=== PATIENT | female | born 1970 | race Caucasian/White ===

== ENCOUNTER 2017-09-12 19:59 | Emergency (ER) | payer OTHER ==
[~2017-09-12] VITALS: Ht 162.6 cm; Wt 85.5 kg
[2017-09-12 20:15] VITALS: BP 137/88
[2017-09-12] MEDS ORDERED: BACTRIM,SEPT1 TABLET PO (21:06)
[2017-09-12] MEDS ORDERED: PERCOCET 5/31 TABLET PO (21:06)
== END 2017-09-12 21:24 | disposition home or self-care (01) ==
LOC: EME 19:59
PROC: 0H9HXZZ Drainage of Right Upper Leg Skin, External Approach (ICD-10-PCS; principal; 2017-09-12)
DX: L02.415 Cutaneous abscess of right lower limb (principal); F17.200 Nicotine dependence, unspecified, uncomplicated; Z90.49 Acquired absence of other specified parts of digestive tract; Z88.5 Allergy status to narcotic agent
CPT/HCPCS: 99281; 99284